=== PATIENT | male | born 1960 ===

== ENCOUNTER 2017-10-01 07:46 | Emergency (ER) | payer OTHER ==
[~2017-10-01] VITALS: Ht 180.3 cm; Wt 96.2 kg
[~2017-10-01 07:46] MED LIST: DILANTIN100 MG PO
[2017-10-01] MEDS ORDERED: FORTAMET1000 MG (08:09)
[2017-10-01] MEDS ORDERED: LEVAQUIN750 MG PO (12:58)
== END 2017-10-01 13:43 | disposition home or self-care (01) ==
LOC: ER 07:46
DX: L02.212 Cutaneous abscess of back [any part, except buttock and flank] (principal)